=== PATIENT | male | born 1965 | race Caucasian/White ===

== ENCOUNTER → 2016-11-01 | Day surgery (SDC) | payer BC ==
[~2016-11-01] MED LIST: AMLODIPINE BESYL5 MG PO; ASPIRIN BUFFER325 MG PO; BENICAR HCT 401 EAC1 PO; CPAP INH; DECADRON1 MG PO; DELTASONE5 MG; FLEXERIL10 MG PO; GLUCOPHAGE500 MG PO; LANTUS SOL100 UNIT/1 SUB-Q; LIPITOR40 MG PO; MIRALAX17 GM PO; NORCO 5-325 MG1 TAB PO
== END ==
LOC: GOPD 10-18 12:30
DX: M54.5 Low back pain (principal); M54.2 Cervicalgia; F40.240 Claustrophobia; E11.9 Type 2 diabetes mellitus without complications; I10 Essential (primary) hypertension; G47.33 Obstructive sleep apnea (adult) (pediatric); E78.5 Hyperlipidemia, unspecified; E66.01 Morbid (severe) obesity due to excess calories; Z68.43 Body mass index [BMI] 50.0-59.9, adult; Z90.49 Acquired absence of other specified parts of digestive tract; Z98.890 Other specified postprocedural states; Z79.84 Long term (current) use of oral hypoglycemic drugs; Z79.899 Other long term (current) drug therapy
CPT/HCPCS: J2250; J7030